=== PATIENT | male | born 1965 | race Two or more races ===

== ENCOUNTER 2018-05-03 20:57 | Emergency (ER) | payer OTHER ==
[~2018-05-03] VITALS: Ht 170.2 cm; Wt 90.9 kg
[2018-05-03] MEDS ORDERED: SODIUM CHLORIDE 0.9% 1,000ML IVBOLUS ONE ×2 (21:30→23:30)
[2018-05-03] MEDS ORDERED: SODIUM CHLORIDE FLUSH 10ML SYR IVF ONE (21:30)
[2018-05-03 21:34] LABS: PH, VENOUS 7.304 pH (7.320-7.420)
[2018-05-03 21:36] LABS: BASOPHILS # (AUTO) 0.02 x10^3/uL (0-0.1); BASOPHILS % (AUTO) 0 % (0-1); EOSINOPHILS % (AUTO) 1 % (1-7); LYMPHOCYTES # (AUTO) 0.98 x10^3/uL (1-3.4); LYMPHOCYTES % (AUTO) 12 % (22-44); MD NO; MEAN CORPUSCULAR HEMOGLOBIN 26.4 pg (27.5-34.5); MEAN CORPUSCULAR HGB CONC 33.3 g/dL (33.2-36.2); MEAN CORPUSCULAR VOLUME 79.3 fL (81-97); MEAN PLATELET VOLUME 8.2 fL (7.4-10.4); MONOCYTES % (AUTO) 5 % (2-9); NEUTROPHILS # (AUTO) 6.82 x10^3/uL (1.8-6.8); NEUTROPHILS % (AUTO) 82 % (42-75); PLATELET COUNT 246 x10^3/uL (130-400); RED BLOOD COUNT 5.52 x10^6/uL (4.38-5.82); RED CELL DISTRIBUTION WIDTH 13.2 % (9.4-14.8)
[2018-05-03 21:45] LABS: ALANINE AMINOTRANSFERASE 64 U/L (12-78); ALBUMIN 4.7 g/dL (3.4-5.0); ANION GAP 19 mmol/L (5-15); CHLORIDE 91 mmol/L (98-107); CREATININE 1.63 mg/dL (0.7-1.3)
[2018-05-03 21:47] LABS: ALKALINE PHOSPHATASE 177 U/L (45-117); BILIRUBIN,TOTAL 4.8 mg/dL (0.2-1.0); TOTAL PROTEIN 8.2 g/dL (6.4-8.2)
[2018-05-03] MEDS ORDERED: INSULIN REGULAR 100 UNITS/ML, 3ML VIAL SQ-INSULIN ONE (22:00)
[2018-05-03 22:01] LABS: ACETONE, SERUM Large (80mg/dL) mg/dL (Negative)
[2018-05-03] MEDS ORDERED: INSULIN SINGLE DOSE, ER SQ-INSULIN ONE ×2 (22:16→23:48)
--- NOTE | 2018-05-03 22:25 | NUR ---
IV PLACED, FLUIDS STARTED AND INSULIN ADMIN PER APR FOR BLOOD SUGAR OF 798. PT RESTING COMFORTABLY IN BED AT THIS TIME. VSS. CALL LIGHT WITHIN REACHY. WILL RECHECK GLUCOSE AND CONTINUE TO MONITOR.
--- NOTE | 2018-05-03 23:01 | NUR ---
REPORT GIVEN TO THOMAS GONSALES
[2018-05-03] MEDS ORDERED: INSULIN REGULAR 100 UNITS/ML, 3ML VIAL SQ-INSULIN SCH (23:30)
[2018-05-03] MEDS ORDERED: PLEASE ENTER ALLERGIES MC SCH (23:45)
[2018-05-04] MEDS ORDERED: SODIUM CHLORIDE 0.9% 1,000ML IVBOLUS ONE
--- NOTE | 2018-05-04 00:17 | NUR ---
PATIENT FSBG RECHECK REMAINS ELEVATED, DR. SALAZAR AWARE, MEDICATED WITH ADDITIONAL INSULIN AND IVF.
[2018-05-04] MEDS ORDERED: INSULIN REGULAR 100 UNITS/ML, 3ML VIAL SQ-INSULIN ONE (00:30)
[2018-05-04 00:56] VITALS: BP 124/62
--- NOTE | 2018-05-04 00:57 | NUR ---
DR. COVINGTON AT BEDSIDE TO DISCUSS DC WITH PATIENT, PATIENT FSB[facility] STILL ELEVATED, STATES HE WILL USE RX FOR REGULAR INSULIN AT PHARMACY SINCE HIS INSULIN IS AT HOME. AGREES WITH PLAN FOR DC.
--- NOTE | 2018-05-04 01:13 | NUR ---
Patient/Caregiver given discharge instructions and they have confirmed that they understand the instructions. Patient ambulatory with steady gait.
== END 2018-05-04 01:21 | disposition home or self-care (01) ==
LOC: ED 05-04 01:01
DX: E11.65 Type 2 diabetes mellitus with hyperglycemia (principal); E86.0 Dehydration
CPT/HCPCS: 36415; 80053; 82010; 82803; 82962; 83930; 85025; 96360; 96361; 96372; 99283; J7030